=== PATIENT | male | born 1980 | race Caucasian/White ===

== ENCOUNTER 2022-05-15 21:05 | Emergency (ER) | payer SELFPAY ==
[~2022-05-15] VITALS: Ht 182.9 cm; Wt 72.6 kg
--- NOTE | 2022-05-15 21:50 | NUR ---
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 PT ENDORSES ALCOHOL AND DENIES ANY DRUGS. AMBULATORY ON ASSESSMENT. CHANGED INTO GOWN AND SAFET MEASURES IN PLACED. PLACED ON MONITOR AND V/S WNL.
--- NOTE | 2022-05-15 21:55 | NUR ---
POC BG [id number]
--- NOTE | 2022-05-16 05:23 | NUR ---
Patient discharged to home in stable condition. Written and verbal after care instructions given. Patient verbalizes understanding of instruction.
[2022-05-16 05:25] VITALS: BP 131/70
== END 2022-05-16 05:25 | disposition home or self-care (01) ==
LOC: ER 21:18
DX: F10.129 Alcohol abuse with intoxication, unspecified (principal); F17.200 Nicotine dependence, unspecified, uncomplicated; Z59.00 Homelessness unspecified; Y90.9 Presence of alcohol in blood, level not specified
CPT/HCPCS: 82962-TC